=== PATIENT | female | born 1950 ===

== ENCOUNTER → 2017-12-21 | Outpatient (CLI) | payer OTHER | END | disposition home or self-care (01) | LOC: PCVCIMAG 16:00 | DX: I50.9 Heart failure, unspecified (principal); I07.1 Rheumatic tricuspid insufficiency; R06.00 Dyspnea, unspecified; E66.9 Obesity, unspecified; I31.3 Pericardial effusion (noninflammatory) | CPT/HCPCS: 93306 ==